=== PATIENT | male | born 1990 | race Caucasian/White ===

== ENCOUNTER 2016-05-18 18:58 | Emergency (ER) | payer BC, OTHER ==
[2016-05-18 21:10] VITALS: BP 146/91; PULSE 102; RESP 18; TEMP 98.1; O2SAT 99
== END 2016-05-18 19:44 | disposition home or self-care (01) | DRG 914 ==
LOC: ED 18:58
DX: S61.022A Laceration with foreign body of left thumb without damage to nail, initial encounter (principal); W31.1XXA Contact with metalworking machines, initial encounter; Y99.0 Civilian activity done for income or pay
CPT/HCPCS: 12001; 99282; G0168